=== PATIENT | male | born 1960 | race Hispanic/Latino ===

== ENCOUNTER 2024-12-04 21:08 | Emergency (ER) | payer BC, SELFPAY ==
[2024-12-04 21:10] VITALS: BP 148/96
[2024-12-05 00:19] VITALS: BMI 24.9
--- NOTE | 2024-12-05 00:21 | EDRN ---
Pt has pressure in L eye and light sensitivity causing pain. Pt has diabetic retinopathy in both eyes and is being cared for this condition - working on getting new doctor. Symptoms started this morning, never experienced these symptoms. Pt uses
brimonidine tartate drop in R eye. Pt notes L eye is reddened, no drainage. No difficulty with vision in either eye. Pressure in L eye has intensified since this morning.
[2024-12-05 00:29] VITALS: BP 144/91
--- NOTE | 2024-12-05 01:08 | ED.GENMED ---
History of Present Illness
<Melvi Higginbotham PA-C - Last Filed: 12/05/24 09:08>
General
Chief Complaint: Visual Problem
Source: patient
Exam Limitations: none
Time Seen by Provider: 12/05/24 00:57
History of Present Illness
History of Present Illness:
Note:
CHIEF COMPLAINT(S)
Pressure and sensitivity to light in the right eye.
HISTORY OF PRESENT ILLNESS
The patient is a 64-year-old male with a history of diabetic retinopathy, presenting with a sensation of pressure and light sensitivity in the left eye. The symptoms started when he was preparing to leave town and have since persisted. The patient
describes the pressure as painful, particularly when moving the eye or in the presence of bright light. He denies any history of trauma or foreign body in the eye. He reports no changes in his vision despite the discomfort and denies headaches or
vomiting. The patient has occasionally used eye drops for treating his condition and notes these typically help soothe his symptoms. He denies drainage from his eye. He reports the most concerning symptom is the pressure experienced in the eye.
CHRONIC MEDICAL CONDITIONS SIGNIFICANTLY AFFECTING CARE
Diabetic retinopathy.
REVIEW OF SYSTEMS
- Ophthalmologic: Pressure and sensitivity to light in the right eye, no change in vision, no drainage noted.
- Neurologic: Denies headaches, vomiting.
PHYSICAL EXAM
- Nursing notes reviewed and vital signs reviewed.
General: Patient is well appearing and in no acute distress; non-toxic
Skin: Warm and dry, no rashes or lesions
Head: Normocephalic, atraumatic
Eyes: Sclera non-icteric. EOMs intact.
Left-- chemotic injected sclera. No fluorescein uptake. Normal intraocular pressure.
Right-- unremarkable
Cardiac: Regular rate
Pulm: Normal respiratory effort
Neuro: CN II-XII intact, no focal neurologic deficits.
Psychiatric: Appropriate mood and affect.
PROBLEM LIST
- Acute: Pressure and sensitivity to light in the right eye.
- Chronic: Diabetic retinopathy.
PLAN
The eye was numbed with topical tetracaine for examination. Intraocular pressure was tested and found to be within normal limits. Corneal staining with fluorescein dye was used to check for abrasions, with none found. A referral to an
campus executive director is planned for further evaluation, and arrangements are being made to expedite the appointment due to the acute nature of the symptoms.
DIFFERENTIAL DIAGNOSIS
The Differential Diagnosis includes, in no particular order and is not limited to:
1. Glaucoma
2. Ocular migraine
3. Cluster headache
4. Corneal abrasion
5. Foreign body in the eye
6. Iritis
7. Retinal detachment
8. Scleritis
9. Conjunctivitis
10. Uveitis
CHART REVIEW
-no prior ER physician documentation to review
MDM/disposition
The patient is a 64-year-old male with a history of diabetic retinopathy, presenting with a sensation of pressure and light sensitivity in the left eye. He has no visual changes. On exam, he has a injected chemotic scleral with normal pressure and
no flouresin uptake. Possible allergic conjunctivitis.
ED attending aware who also evaluated patient. Will cover with abx, provided referral for local optho, discussed strict return precautions.
Review of Systems
<Melvi Higginbotham PA-C - Last Filed: 12/05/24 09:08>
Review of Systems
All Other Systems: ROS reviewed and negative except as documented in HPI and ROS
Phy Exam
<Melvi Higginbotham PA-C - Last Filed: 12/05/24 09:08>
Physical Exam
Physical Exam:
see hpi
Course
<Melvi Higginbotham PA-C - Last Filed: 12/05/24 09:08>
Orders/Labs/Results
Orders:
Orders
12/05/24 02:31
Erythromycin (Ilotycin) [Erythromycin 0.5% Ophthalmic Ointment] See Dose Instructions OPHTH NOW STA
12/05/24 03:18
Fluorescein Sodium [Ful-Rosario] 2 mg .ROUTE .STK-MED ONE
Purified Water Eye Wash [Dacriose Eye Wash Solution] 120 ml .ROUTE .STK-MED ONE
Tetracaine HCl [Tetracaine 0.5% Ophthalmic Solution] 1 drop .ROUTE .STK-MED ONE
Vital Signs
Initial and Last Documented VS:
Initial Vital Signs
Temp Pulse Resp BP Pulse Ox
98.2 F 92 20 148/96 100
12/04/24 21:10 12/04/24 21:10 12/04/24 21:10 12/04/24 21:10 12/04/24 21:10
Last Documented Vital Signs
Temp Pulse Resp BP Pulse Ox
98.2 F 89 14 130/88 98
12/04/24 21:10 12/05/24 03:05 12/05/24 03:05 12/05/24 03:05 12/05/24 03:05
<Stephanie Dowling, DO - Last Filed: 12/05/24 03:00>
Orders/Labs/Results
Orders:
Orders
12/05/24 02:31
Erythromycin (Ilotycin) [Erythromycin 0.5% Ophthalmic Ointment] See Dose Instructions OPHTH NOW STA
12/05/24 03:18
Fluorescein Sodium [Ful-Rosario] 2 mg .ROUTE .STK-MED ONE
Purified Water Eye Wash [Dacriose Eye Wash Solution] 120 ml .ROUTE .STK-MED ONE
Tetracaine HCl [Tetracaine 0.5% Ophthalmic Solution] 1 drop .ROUTE .STK-MED ONE
Vital Signs
Initial and Last Documented VS:
Initial Vital Signs
Temp Pulse Resp BP Pulse Ox
98.2 F 92 20 148/96 100
12/04/24 21:10 12/04/24 21:10 12/04/24 21:10 12/04/24 21:10 12/04/24 21:10
Last Documented Vital Signs
Temp Pulse Resp BP Pulse Ox
98.2 F 89 14 130/88 98
12/04/24 21:10 12/05/24 03:05 12/05/24 03:05 12/05/24 03:05 12/05/24 03:05
<Melvi Higginbotham PA-C - Last Filed: 12/05/24 09:08>
*Pulse Oximetry
SaO2: 98
Oxygen Mode of Delivery: Room air
Patient hypoxic: no
*Critical Care Note
Total Time (30-74mins, 75-104mins- exclusive of procedures): Not Applicable
ED Attending Note
<Melvi Higginbotham PA-C - Last Filed: 12/05/24 09:08>
-
Portions of this chart may have been created with voice recognition software.� Occasional wrong word or��sound alike� substitutions may have occurred due to the inherent limitations of voice recognition software.
<Stephanie Dowling DO - Last Filed: 12/05/24 03:00>
ED Attending Note
Patient seen and examined by attending physician: Yes
I performed the substantive portion of visit, reviewed & personally made and approve the management plan that is documented in note by myself or JARAD.: Yes
I performed a history and physical exam of patient and discussed management with resident, I reviewed resident's note and agree with documented findings and plan of care.: Yes
ED Attending Note:
64-year-old male with history of diabetic retinitis presenting to the emergency department for left eye irritation and pain. Patient reports that it started acutely this afternoon. Denies any inciting injury or trauma. Denies any fall. He
follows with an eye doctor in [place], which is where he works and notes that he gets routine examinations. Denies any visual changes. Denies any report of floaters. Denies foreign body sensation. He notes that he feels a lot of pressure. Denies
significant history of allergies. Does note that he went for a long walk today. Denies fever. Denies any metalworking. Denies additional acute complaints.
Vital signs normal. On exam, patient does have injected sclera and some mild chemosis. No significant swelling to the orbit. No proptosis. Extraocular movements are intact. Pupils are equal and reactive. Normal pressures bilaterally with 10 to
the left eye, 15 to the right eye. Patient denying any visual symptoms. Under fluorescein staining, no significant uptake or corneal abrasion. Conjunctival irritation. Ultimately suspect allergic conjunctivitis. Patient also notes
photosensitivity, possible keratitis. Will start patient on antibiotic ointment. Ultimately however at this time without any increased pressure or acute visual symptoms, feel stable for discharge with outpatient ophthalmology follow-up. Strict
return precautions communicated to patient verbalized understanding
Discharge Plan
Departure
Patient Disposition: Home (Routine Discharge)
Patient with high blood pressure during this ER visit?: Yes
Condition: Good
Discharge Problem:
Scleral injection, Acute left eye pain
Instructions: Tonometry, Conjunctivitis (pink eye) - ED discharge instructions
Prescriptions:
No Action
metformin 500 mg Tablet
500 mg PO BID
atorvastatin 20 mg Tablet
20 mg PO DAILY
minoxidil 2.5 mg Tablet
2.5 mg PO BID
pantoprazole 40 mg Tablet,Delayed Release (Dr/Ec)
40 mg PO DAILY
lisinopril 5 mg Tablet
5 mg PO DAILY
vitamin B complex Capsule
1 cap PO DAILY
Centrum Adult 50 Plus 80 mcg Tablet,Chewable
1 tab PO DAILY
Dovato 50-300 mg Tablet
1 tab PO DAILY
Ozempic 1 mg/dose (4 mg/3 mL) Pen Injector
1 mg SC QWEEK
brimonidine (PF) 0.025 % Dropperette
1 drp ophthalmic (eye) DAILY
Patient Comments:
instill in R eye
Referrals:
[facility] [Other]
Adrian Tanner MD [Active, Ophthalmology] - Call in 1-3 days for appt
UNKNOWN - PT DOES,NOT KNOW [Family Provider]
Activity Restrictions/Additional Instructions:
Please apply the ointment into the left eye 1/2 inch ribbon 4 times daily for 5 days.
Please call attached number to schedule an appoint with ophthalmology. Please call as soon as the office opens.
PLEASE RETURN EMERGENCY DEPARTMENT SHOULD YOU DEVELOP VISUAL LOSS, ACUTE WORSENING OF YOUR PAIN, EYE SWELLING, BLURRY VISION, CHEST PAIN, SHORTNESS OF BREATH, NAUSEA OR VOMITING, HEADACHE THAT SEEMS SIDE, OR ANY OTHER SIGNS OR SYMPTOMS RECENTLY.
Interventions
Interventions:
*Risk Screen - Suicide Last Done: 12/04/24 21:10
*General Assessment Last Done: 12/05/24 00:19
*Neglect/Abuse Screening Last Done: 12/04/24 21:10
*ED- Fall Risk Assessment Last Done: 12/05/24 00:19
*Nursing Disposition Last Done: 12/05/24 03:10
ED- Neurological Assessment Last Done: 12/05/24 00:32
ED-EENT Assessment Last Done: 12/05/24 00:32
Discharge Date and Time
Discharge Date/Time: 12/05/24 03:10
Print Language: IRANIAN
[2024-12-05 03:05] VITALS: BP 130/88
[2024-12-05] MEDS: ERYTHROMYCIN 0.5% OPHTHALMIC OINTMENT 1 APPLIC OPHTH (03:05)
== END 2024-12-05 03:10 | disposition home or self-care (01) ==
LOC: EMR 21:08
PROVIDERS: EMERGENCY PHYSICIAN Student in an Organized Health Care Education/Training Program
DX: H57.89 Other specified disorders of eye and adnexa (principal); H57.12 Ocular pain, left eye; E11.319 Type 2 diabetes mellitus with unspecified diabetic retinopathy without macular edema
CPT/HCPCS: 99283

== ENCOUNTER → 2025-05-03 07:17 | Outpatient (REF) | payer BC, SELFPAY | LOC: RCS 07:17 | PROVIDERS: ATTENDING PHYSICIAN Internal Medicine Cardiovascular Disease; FAMILY PHYSICIAN Internal Medicine | DX: I45.10 Unspecified right bundle-branch block (principal); R94.31 Abnormal electrocardiogram [ECG] [EKG] | CPT/HCPCS: 93306 ==